=== PATIENT | male | born 2000 | race Caucasian/White ===

== ENCOUNTER 2021-10-05 12:17 | Emergency (ER) | payer OTHER ==
[~2021-10-05] VITALS: Ht 165.1 cm; Wt 78.6 kg
[2021-10-05 13:01] VITALS: BP 120/73
== END 2021-10-05 13:51 | disposition home or self-care (01) ==
LOC: EMS 12:49
DX: L05.91 Pilonidal cyst without abscess (principal)
CPT/HCPCS: 10080; 99283

== ENCOUNTER 2021-10-09 10:09 | Emergency (ER) | payer OTHER ==
[~2021-10-09] VITALS: Ht 165.1 cm; Wt 77.3 kg
[2021-10-09 12:13] VITALS: BP 120/73
== END 2021-10-09 12:30 | disposition home or self-care (01) ==
LOC: EMS 10:13
DX: L05.91 Pilonidal cyst without abscess (principal)
CPT/HCPCS: 99282; Z7502